=== PATIENT | male | born 1965 | race Caucasian/White ===

== ENCOUNTER 2023-01-23 10:42 | Observation (INO) | payer BC ==
[~2023-01-23] VITALS: Ht 185.4 cm; Wt 122.0 kg
[2023-01-23] VITALS (8 sets, daily range): BP systolic 142–161; BP diastolic 76–93; PULSE 56–82; TEMP 98.1–98.2
[2023-01-23] MEDS ORDERED: FLOMAX 0.40.4 MG/CAP PO (12:42)
[2023-01-23] MEDS ORDERED: LEVAQUIN 750MG750 M1 PO (12:42)
[2023-01-23] MEDS ORDERED: NORCO 325 MG-51 TAB PO ×2 (12:43→16:09)
--- NOTE | 2023-01-23 14:26 | NUR ---
Patient admitted to room 322. Alert & oriented. Pain present to back. rounded & orders obtained. Consent obtained. Questions answered.VSS on room air. Ivf to gravity. Patient voided, pale yellow urine, no stone strained. His at bedside. He remains NPO, denies nausea. Will monitor
--- NOTE | 2023-01-23 15:30 | NUR ---
Patient to the Or with Neema PAcu nurse. Will await his return, to [facility] waiting room
--- NOTE | 2023-01-23 17:53 | NUR ---
Patient sleepy post op. Vss on room air. Supportive at bedside. He has been up to the bathroom & voided blood tinged urine. Ice water provided. Will monitor
--- NOTE | 2023-01-23 19:14 | NUR ---
Patient tolerated dinner tray. no nausea. Pain managed. Azo & levsin given to discomfort with voiding. Vss. Plans for discharge joselyn
--- NOTE | 2023-01-23 19:30 | NUR ---
PT READY FOR DISCHARGE. REVIEWED DISCHARGE INSTRUCTIONS WITH PATIENT AND SPOUSE. QUESTIONS ANSWERED. REMOVED INT FROM [facility], ANGIOCATH INTACT. DENIES PAIN OR NAUSEA AT THIS TIME.
--- NOTE | 2023-01-23 19:40 | NUR ---
PT ESCORTED TO PRIVATE VEHICLE VIA W/C. PERSONAL BELONGINGS AND DISCHARGE INSTRUCTIONS SENT WITH PT.
== END 2023-01-23 19:40 | disposition home or self-care (01) ==
LOC: SURG 10:42
PROVIDERS: ADMIT Urology
DX: N20.1 Calculus of ureter (principal); N17.9 Acute kidney failure, unspecified
CPT/HCPCS: C1769; C2617; G0378; J0690; J1100; J1885; J2270; J2405; J2704; J3010; J7030